=== PATIENT | female | born 1945 | race Two or more races ===

== ENCOUNTER 2019-05-14 14:05 | Outpatient (CLI) | payer MEDICARE, BC | END 2019-05-14 23:59 | disposition home health service (06) | LOC: WOU 14:05 | PROVIDERS: ATTEND Surgery | DX: S31.825A Open bite of left buttock, initial encounter (principal); W54.0XXA Bitten by dog, initial encounter; Y92.89 Other specified places as the place of occurrence of the external cause; D64.9 Anemia, unspecified; J45.909 Unspecified asthma, uncomplicated | CPT/HCPCS: 11043 ==

== ENCOUNTER 2019-05-21 13:55 | Outpatient (CLI) | payer MEDICARE, BC | END 2019-05-21 23:59 | disposition home health service (06) | LOC: WOU 13:55 | PROVIDERS: ATTEND Surgery | DX: S31.825A Open bite of left buttock, initial encounter (principal); W54.0XXA Bitten by dog, initial encounter; Y92.89 Other specified places as the place of occurrence of the external cause; D64.9 Anemia, unspecified; J45.909 Unspecified asthma, uncomplicated; Z79.899 Other long term (current) drug therapy | CPT/HCPCS: 11043 ==